=== PATIENT | male | born 1965 | race Caucasian/White ===

== ENCOUNTER 2018-12-10 13:30 | Day surgery (SDC) | payer BC ==
[2018-12-10] MEDS ORDERED: FENTAnyl 50 MCG/ML VIAL IV ×2 (16:00)
[2018-12-10] MEDS ORDERED: morphine (1 MG/ML) 10ML SYRINGE IV ×2 (16:00)
[2018-12-10] MEDS ORDERED: hydrALAzine 20 MG INJ IV (16:00)
[2018-12-10] MEDS ORDERED: METOCLOPRAMIDE 10 MG INJ IV (16:00)
[2018-12-10] MEDS ORDERED: OXYCODONE/ACETAMINOPHEN (5/325) TAB PO (16:00)
[2018-12-10] MEDS ORDERED: ONDANSETRON 4 MG INJ IV (16:00)
[2018-12-10] MEDS ORDERED: LABETALOL HCL 20MG INJ IV (16:00)
[2018-12-10] MEDS ORDERED: PROPOFOL 40 ML (16:12)
== END 2018-12-10 17:12 | disposition home or self-care (01) ==
LOC: GIL 13:30
DX: K64.8 Other hemorrhoids (principal)
CPT/HCPCS: 45380; 88305